=== PATIENT | female | born 1960 | race Caucasian/White ===

== ENCOUNTER → 2018-08-25 | Outpatient (CLI) | payer OTHER | LOC: M.RAD 14:50 | DX: Z12.31 Encounter for screening mammogram for malignant neoplasm of breast (principal) ==

== ENCOUNTER → 2020-06-29 | Outpatient (CLI) | payer OTHER | LOC: M.RAD 14:00 | PROVIDERS: ATTEND Nurse Practitioner Family | DX: Z12.31 Encounter for screening mammogram for malignant neoplasm of breast (principal); N64.89 Other specified disorders of breast ==

== ENCOUNTER → 2021-02-04 | Outpatient (CLI) | payer OTHER | LOC: M.ULTRA 07:04 | PROVIDERS: ATTEND Specialist | DX: R10.2 Pelvic and perineal pain (principal); R93.89 Abnormal findings on diagnostic imaging of other specified body structures ==